=== PATIENT | female | born 1995 | race Caucasian/White ===

== ENCOUNTER 2019-02-02 14:35 | Emergency (ER) | payer MEDICAID ==
[~2019-02-02] VITALS: Ht 160 cm; Wt 54.4 kg
[2019-02-02 14:41] VITALS: Ht 160 cm; Wt 54.4 kg
[2019-02-02 15:55] VITALS: BP 103/64
== END 2019-02-02 15:55 | disposition home or self-care (01) ==
LOC: ED 14:35
DX: T78.40XA Allergy, unspecified, initial encounter (principal); X58.XXXA Exposure to other specified factors, initial encounter
CPT/HCPCS: J7512